=== PATIENT | male | born 1990 | race Caucasian/White ===

== ENCOUNTER 2020-08-19 12:50 | Emergency (ER) | payer BC ==
[~2020-08-19] VITALS: Ht 182.9 cm; Wt 104.3 kg
[2020-08-19] MEDS ORDERED: DICYCLOMINE HCL10 MG PO (15:24)
[2020-08-19] MEDS ORDERED: HYDROCODON-ACE1 EA10 PO (15:24)
[2020-08-19] MEDS ORDERED: ZOFRAN4 MG PO (15:24)
== END 2020-08-19 15:40 | disposition home or self-care (01) ==
LOC: ED 12:50
DX: K52.9 Noninfective gastroenteritis and colitis, unspecified (principal); Z20.822 Contact with and (suspected) exposure to COVID-19
CPT/HCPCS: 74018; 80053; 81001; 83690; 83735; 85025; 96374; 96375; 99284-25; C9803; J1885; J2405; U0003

== ENCOUNTER 2022-05-02 01:55 | Emergency (ER) | payer OTHER, BC ==
[~2022-05-02] VITALS: Ht 182.9 cm; Wt 93.0 kg
[~2022-05-02 01:55] MED LIST: DICYCLOMINE HCL10 MG PO; HYDROCODON-ACE1 EA10 PO; ZOFRAN4 MG PO
== END 2022-05-02 03:30 | disposition home or self-care (01) ==
LOC: ED 01:55
DX: Z77.21 Contact with and (suspected) exposure to potentially hazardous body fluids (principal)
CPT/HCPCS: 36415; 84460; 86706; 87340; 87522; 99283